=== PATIENT | male | born 1990 | race African-American/Black ===

== ENCOUNTER 2016-09-17 05:14 | Emergency (ER) | payer OTHER ==
[~2016-09-17] VITALS: Ht 203.2 cm; Wt 90.7 kg
[2016-09-17 05:20] VITALS: BP 167/97
[2016-09-17] MEDS ORDERED: IBUPROFEN600 M1 PO (05:27)
--- NOTE | 2016-09-17 05:27 | ED THROAT/DENTAL COMPLAINT ---
History of Present Illness General Chief Complaint: Sore Throat, Dental Pain Stated Complaint: "LOWER RT SIDE DENTAL/THROAT/HEAD PAIN X2DAYS" Source: patient Exam Limitations: no limitations Vital Signs & Intake/Output Vital Signs & Intake/Output Vital Signs Date Time Temp Pulse Resp B/P Pulse O2 O2 Flow FiO2 Ox Delivery Rate 09/17 0520 96.8 60 18 167/97 98 Room Air Allergies Coded Allergies: No Known Drug Allergies (09/17/16) Reconcile Medications Amoxicillin 500 MG TABLET 1 TAB PO TID DENTAL INFECTION Ibuprofen 600 MG TABLET 1 TAB PO TID PRN PAIN SCALE 7-10 (SEVERE) (Reported) with food Oxycodone HCl/Acetaminophen (Percocet 5-325 MG Tablet) 5 MG-325 MG TABLET 1-2 TAB PO Q6P PRN PAIN Triage Note: PT TO ED C/O RT SIDE TOOTH ACHE "FOR A WEEK OR 2" AND HEADACHE AND SORE THROAT FOR 2 DAYS. TOOK 600 MG IBUPROFIN AT [address] RIVAS AT BEDSIDE TO [facility] PATIENT Triage Nurses Notes Reviewed? yes HPI: 10 out of 10 throbbing pain to his right lower molar that radiates to his ear and hi head. The pain has been worsening over the past few days. The pain worsens with cold air and cold liquids. There are no fevers or chills. There is no difficulty swallowing or breathing. Patient has not seen a dentist for this yet. Past History Travel History Traveled to [place] past 21 day No Medical History Any Pertinent Medical History? none Neurological: NONE EENT: NONE Cardiovascular: NONE Respiratory: NONE Gastrointestinal: NONE Hepatic: NONE Renal: NONE Musculoskeletal: NONE Psychiatric: NONE Endocrine: NONE Surgical History Surgical History: non-contributory Psychosocial History What is your primary language Indonesian Tobacco Use: Current Daily Use Daily Tobacco Use Amount/Type: => 5 Cigarettes daily ETOH Use: occasional use Illicit Drug Use: marijuana Family History Hx Contributory? No Review of Systems Review of Systems Constitutional: Reports: no symptoms. EENTM: Reports: see HPI, tooth pain. Respiratory: Reports: no symptoms. Cardiovascular: Reports: no symptoms. GI: Reports: no symptoms. Musculoskeletal: Reports: no symptoms. Neurological/Psychological: Reports: see HPI, headache. Immunologic/Allergic: Reports: no symptoms. Physical Exam Physical Exam General Appearance: well developed/nourished, alert, awake, anxious, moderate distress Head: atraumatic, normal appearance Eyes: Bilateral: PERRL, EOMI. Ears: Bilateral: canal normal, Tympanic normal. Mouth/Throat: dental carries woth surrounding erythmea Neck: normal inspection, supple, full range of motion Cardiovascular/Respiratory: normal breath sounds, normal peripheral pulses, regular rate/rhythm, no respiratory distress Neurologic/Psych: no motor/sensory deficits, awake, alert, oriented x 3, normal gait, abnormal cerebellar tests Core Measures ACS in differential dx? No Severe Sepsis Present: No Septic Shock Present: No Progress Differential Diagnosis: carious tooth Plan of Care: Current Medications Sig/Addison Start time Last Medication Dose Stop Time Status Admin Amoxicillin 500 MG ONCE ONE 09/17 529 UNVr (Amoxil) 09/17 530 Departure Departure Disposition: HOME OR SELF CARE Condition: Stable Clinical Impression Primary Impression: Dental infection Additional Instructions: FOLLOW UP WITH A DENTIST RETURN IF SYMPTOMS WORSEN OR FOR ANY CONCERNS Departure Forms: Customer Survey General Discharge Information Prescriptions: Current Visit Scripts Amoxicillin 1 TAB PO TID #30 TAB Oxycodone HCl/Acetaminophen (Percocet 5-325 MG Tablet) 1-2 TAB PO Q6P PRN PAIN #20 TAB
[2016-09-17] MEDS ORDERED: AMOXICILLIN500 M3 PO (05:28)
[2016-09-17] MEDS ORDERED: PERCOCET 5-3251 EACH PO (05:28)
== END 2016-09-17 05:42 ==
LOC: ERH 05:14
DX: K04.7 Periapical abscess without sinus (principal)